=== PATIENT | male | born 1940 | race Caucasian/White ===

== ENCOUNTER → 2018-06-13 09:03 | Outpatient (CLI) | payer MEDICARE, OTHER, SELFPAY ==
[2018-06-13 09:45] LABS: Add Manual Diff / Slide Review NO; Basophils Absolute Auto 0 /uL (0-100); Basophils Percent Auto 0.7 % (0-2); Eosinophils Absolute Auto 200 /uL (0-450); Eosinophils Percent Auto 3.2 % (2-4); Hematocrit 40.9 % (41-53); Hemoglobin 14.1 g/dL (13.5-17.5); Lymphocytes Absolute Auto 1500 /uL (1100-4500); Lymphocytes Percent Auto 27.4 % (25-40); Mean Corpuscular HGB Conc 34.6 % (30-36); Mean Corpuscular Hemoglobin 32.4 PG (26-34); Mean Corpuscular Volume 93.5 fL (80-100); Monocytes Absolute Auto 500 /uL (0-900); Monocytes Percent Auto 8.6 % (3-14); Neutrophils Absolute Auto 3200 /uL (1500-7000); Neutrophils Percent Auto 60.1 % (50-75); Platelet Count 171 X10^3/uL (150-400); Red Blood Cell Count 4.37 X10^6/uL (4.5-5.9); Red Cell Distribution Width 12.6 % (11.6-14.8); White Blood Cell Count 5.3 X10^3/uL (4.5-11.0)
[2018-06-13 09:58] LABS: Alanine Aminotransferase 32 IU/L (21-72); Albumin 4.2 g/dL (3.5-5.0); Albumin Globulin Ratio 1.4 (1.0-2.8); Alkaline Phosphatase 64 U/L (38-126); Aspartate Aminotransferase 23 IU/L (17-59); BUN Creatinine Ratio 35.6 (6-22); Bilirubin Total 0.9 mg/dL (0.2-1.3); Blood Urea Nitrogen 32 mg/dL (9-20); Calcium 9.6 mg/dL (8.4-10.2); Carbon Dioxide 29 mmol/L (22-32); Chloride 100 mmol/L (98-107); Cholesterol 181 mg/dL (140-199); Estimated Glomerular Filt Rate > 60.0 mL/min (>60); Glucose 121 mg/dL (80-110); HDL Cholesterol 44 mg/dL (40-60); HEMOLYSIS < 15 (0-50); LDL Cholesterol Calculated 116 mg/dL (<100); Potassium 4.1 mmol/L (3.4-5.1); Sodium 138 mmol/L (137-145); Total Protein 7.2 g/dL (6.3-8.2); Triglycerides 105 mg/dL (35-150)
== END ==
PROVIDERS: PCP Internal Medicine; Visit Provider Internal Medicine
DX: E78.00 Pure hypercholesterolemia, unspecified (principal); I10 Essential (primary) hypertension
CPT/HCPCS: 36415; 80053; 80061; 85025

== ENCOUNTER → 2018-10-02 08:36 | Outpatient (CLI) | payer MEDICARE, OTHER, SELFPAY ==
[2018-10-02 10:01] LABS: Cholesterol 156 mg/dL (140-199); HDL Cholesterol 45 mg/dL (40-60); LDL Cholesterol Calculated 88 mg/dL (<100); Triglycerides 113 mg/dL (35-150)
== END ==
PROVIDERS: PCP Internal Medicine; Visit Provider Internal Medicine
DX: I10 Essential (primary) hypertension (principal)
CPT/HCPCS: 36415; 80061

== ENCOUNTER → 2019-02-18 14:23 | Outpatient (CLI) | payer MEDICARE, OTHER, SELFPAY ==
--- NOTE | 2019-02-18 | DI.RAD.S_ITS ---
PROCEDURE: XR CHEST 2V INDICATIONS: CHEST XR ACUTE BRONCHITITS TECHNIQUE: 2 views of the chest were acquired. COMPARISON: [facility], CHEST 1 VIEW, 11/10/2015, 6:58. [facility], CHEST 1 VIEW, 07/20/2011, 2:21. FINDINGS: Surgical changes and devices: None. Lungs and pleura: Lungs are clear. No pleural effusions or pneumothorax. Mediastinum: Mediastinal contours are normal. Heart size is normal. Bones and chest wall: No suspicious bony abnormalities. Soft tissues appear unremarkable. IMPRESSION: Normal for age, source of current acute bronchitis symptoms is not seen. Dictated by: Chapito Paris M.D. on 02/18/2019 at 15:54 Approved by: Chapito Paris M.D. on 02/18/2019 at 15:54
== END ==
PROVIDERS: PCP Internal Medicine; Visit Provider Student in an Organized Health Care Education/Training Program
DX: J20.9 Acute bronchitis, unspecified (principal)
CPT/HCPCS: 71046

== ENCOUNTER → 2019-11-08 16:44 | Outpatient (CLI) | payer MEDICARE, OTHER, SELFPAY ==
[2019-11-08 17:21] LABS: Add Manual Diff / Slide Review NO; Basophils Absolute Auto 0 /uL (0-100); Basophils Percent Auto 0.4 % (0-2); Eosinophils Absolute Auto 200 /uL (0-450); Eosinophils Percent Auto 2.2 % (2-4); Hematocrit 39.3 % (41-53); Hemoglobin 13.5 g/dL (13.5-17.5); Lymphocytes Absolute Auto 2100 /uL (1100-4500); Lymphocytes Percent Auto 30.6 % (25-40); Mean Corpuscular HGB Conc 34.3 % (30-36); Mean Corpuscular Hemoglobin 32.2 PG (26-34); Mean Corpuscular Volume 93.8 fL (80-100); Monocytes Absolute Auto 500 /uL (0-900); Monocytes Percent Auto 7.5 % (3-14); Neutrophils Absolute Auto 4100 /uL (1500-7000); Neutrophils Percent Auto 59.3 % (50-75); Platelet Count 176 X10^3/uL (150-400); Red Blood Cell Count 4.19 X10^6/uL (4.5-5.9); Red Cell Distribution Width 12.7 % (11.6-14.8); White Blood Cell Count 6.9 X10^3/uL (4.5-11.0)
[2019-11-08 18:21] LABS: Alanine Aminotransferase 43 IU/L (<50); Albumin 4.1 g/dL (3.5-5.0); Albumin Globulin Ratio 1.4 (1.0-2.8); Alkaline Phosphatase 78 U/L (38-126); Aspartate Aminotransferase 38 IU/L (17-59); Bilirubin Total 0.7 mg/dL (0.2-1.3); Blood Urea Nitrogen 24 mg/dL (9-20); Calcium 9.2 mg/dL (8.4-10.2); Carbon Dioxide 28 mmol/L (22-32); Chloride 103 mmol/L (98-107); Estimated Glomerular Filt Rate > 60.0 mL/min (>60); Glucose 107 mg/dL (80-110); HEMOLYSIS < 15 (0-50); Potassium 3.9 mmol/L (3.4-5.1); Sodium 139 mmol/L (137-145); Total Protein 7.1 g/dL (6.3-8.2)
== END ==
PROVIDERS: PCP Internal Medicine; Referring Provider Internal Medicine; Visit Provider Internal Medicine
DX: E78.00 Pure hypercholesterolemia, unspecified (principal); I10 Essential (primary) hypertension; E66.9 Obesity, unspecified
CPT/HCPCS: 36415; 80053; 85025

== ENCOUNTER → 2020-05-28 08:25 | Outpatient (CLI) | payer MEDICARE, OTHER, SELFPAY ==
[2020-05-28 09:47] LABS: Add Manual Diff / Slide Review NO; Basophils Absolute Auto 0 /uL (0-100); Basophils Percent Auto 0.5 % (0-2); Eosinophils Absolute Auto 100 /uL (0-450); Eosinophils Percent Auto 2.5 % (2-4); Hematocrit 39.4 % (41-53); Hemoglobin 13.5 g/dL (13.5-17.5); Lymphocytes Absolute Auto 1400 /uL (1100-4500); Lymphocytes Percent Auto 27.6 % (25-40); Mean Corpuscular HGB Conc 34.4 % (30-36); Mean Corpuscular Hemoglobin 32.4 PG (26-34); Mean Corpuscular Volume 94.3 fL (80-100); Monocytes Absolute Auto 500 /uL (0-900); Neutrophils Absolute Auto 3200 /uL (1500-7000); Neutrophils Percent Auto 60.4 % (50-75); Platelet Count 167 X10^3/uL (150-400); Red Blood Cell Count 4.17 X10^6/uL (4.5-5.9); Red Cell Distribution Width 12.6 % (11.6-14.8); White Blood Cell Count 5.2 X10^3/uL (4.5-11.0)
[2020-05-28 09:58] LABS: Alanine Aminotransferase 38 IU/L (<50); Albumin 4.1 g/dL (3.5-5.0); Albumin Globulin Ratio 1.5 (1.0-2.8); Alkaline Phosphatase 76 U/L (38-126); Aspartate Aminotransferase 40 IU/L (17-59); BUN Creatinine Ratio 27.3 (6-22); Bilirubin Total 0.8 mg/dL (0.2-1.3); Blood Urea Nitrogen 18 mg/dL (9-20); Calcium 9.5 mg/dL (8.4-10.2); Carbon Dioxide 27 mmol/L (22-32); Chloride 104 mmol/L (98-107); Estimated Glomerular Filt Rate > 60.0 mL/min (>60); Globulin 2.7 g/dL (1.7-4.1); Glucose 111 mg/dL (80-110); HEMOLYSIS < 15 (0-50); Lipase 42 U/L (23-300); Potassium 3.8 mmol/L (3.4-5.1); Sodium 137 mmol/L (137-145); Total Protein 6.8 g/dL (6.3-8.2)
[2020-05-28 10:18] LABS: Erythrocyte Sedimentation Rate 14 MM/HR (0-15)
[2020-05-28 10:25] LABS: Prostate Specific Antigen 0.268 ng/mL (0.10-4.00)
== END ==
PROVIDERS: PCP Internal Medicine; Referring Provider Internal Medicine; Visit Provider Internal Medicine
DX: R10.32 Left lower quadrant pain (principal); Z12.5 Encounter for screening for malignant neoplasm of prostate
CPT/HCPCS: 36415; 80053; 83690; 84153; 85025; 85651; G0103

== ENCOUNTER → 2021-10-12 09:19 | Outpatient (CLI) | payer MEDICARE, OTHER, SELFPAY ==
[2021-10-12 12:19] LABS: Alanine Aminotransferase 23 IU/L (<50); Albumin 4.1 g/dL (3.5-5.0); Albumin Globulin Ratio 1.4 (1.0-2.8); Alkaline Phosphatase 71 U/L (38-126); Aspartate Aminotransferase 24 IU/L (17-59); Blood Urea Nitrogen 18 mg/dL (9-20); Calcium 9.2 mg/dL (8.4-10.2); Carbon Dioxide 30 mmol/L (22-32); Chloride 103 mmol/L (98-107); Cholesterol 162 mg/dL (140-199); Estimated Glomerular Filt Rate > 60 mL/min (>60); Globulin 2.9 g/dL (1.7-4.1); Glucose 102 mg/dL (80-110); HDL Cholesterol 45 mg/dL (40-60); HEMOLYSIS < 15 (0-50); LDL Cholesterol Calculated 95 mg/dL (<100); Potassium 4.2 mmol/L (3.4-5.1); Sodium 137 mmol/L (137-145); Triglycerides 111 mg/dL (35-150)
== END ==
PROVIDERS: PCP Internal Medicine; Referring Provider Internal Medicine; Visit Provider Internal Medicine
DX: I10 Essential (primary) hypertension (principal); E78.2 Mixed hyperlipidemia; N13.8 Other obstructive and reflux uropathy; N40.1 Benign prostatic hyperplasia with lower urinary tract symptoms
CPT/HCPCS: 36415; 80053; 80061

== ENCOUNTER → 2022-05-04 10:31 | Outpatient (CLI) | payer MEDICARE, OTHER, SELFPAY ==
[2022-05-04 11:17] LABS: Alanine Aminotransferase 37 IU/L (<50); Albumin 4.1 g/dL (3.5-5.0); Albumin Globulin Ratio 1.3 (1.0-2.8); Alkaline Phosphatase 70 U/L (38-126); Aspartate Aminotransferase 31 IU/L (17-59); BUN Creatinine Ratio 20.7 (6-22); Bilirubin Total 0.9 mg/dL (0.2-1.3); Blood Urea Nitrogen 17 mg/dL (9-20); Carbon Dioxide 33 mmol/L (22-32); Chloride 101 mmol/L (98-107); Cholesterol 162 mg/dL (140-199); Estimated Glomerular Filt Rate > 60 mL/min (>60); Globulin 3.1 g/dL (1.7-4.1); Glucose 95 mg/dL (80-110); HDL Cholesterol 47 mg/dL (40-60); HEMOLYSIS < 15 (0-50); LDL Cholesterol Calculated 99 mg/dL (<100); Potassium 4.2 mmol/L (3.4-5.1); Sodium 137 mmol/L (137-145); Total Protein 7.2 g/dL (6.3-8.2); Triglycerides 79 mg/dL (35-150)
[2022-05-11 09:54] LABS: Percent Free Testosterone 1.66 % (1.50-4.20); Testosterone Free 4.97 ng/dL (5.00-21.00); Testosterone Total 299.6 ng/dL (264.0-916.0)
== END ==
PROVIDERS: PCP Internal Medicine; Referring Provider Internal Medicine; Visit Provider Internal Medicine
DX: E78.2 Mixed hyperlipidemia (principal); I10 Essential (primary) hypertension; R37 Sexual dysfunction, unspecified; R53.83 Other fatigue
CPT/HCPCS: 36415; 80053; 80061; 84402; 84403

== ENCOUNTER → 2022-06-29 12:40 | Outpatient (CLI) | payer MEDICARE, OTHER, SELFPAY | PROVIDERS: PCP Internal Medicine; Visit Provider Nurse Practitioner Family | DX: S51.019A Laceration without foreign body of unspecified elbow, initial encounter (principal) | CPT/HCPCS: 87070; 87075; 87205 ==

== ENCOUNTER → 2022-08-12 12:59 | Outpatient (CLI) | payer MEDICARE, OTHER, SELFPAY ==
--- NOTE | 2022-08-12 | DI.CT.S_ITS ---
PROCEDURE: CT LE RT WO CON INDICATIONS: Presence of right artificial ankle joint TECHNIQUE: Noncontrast 1-1.5 mm axial sections acquired from above the tibiotalar joint to the bottom of the calcaneus, with coronal and sagittal reformats. COMPARISON: [facility] [place], CR, XR ANKLE 3 VIEWS WEIGHT BEARING RIGHT, 08/08/2022, 10:23. FINDINGS: Image quality: Images are mildly degraded by mortise joint arthroplasty with expected metal streak artifact. Bones: Postsurgical changes are seen from a tibiotalar joint arthroplasty. Hardware components are in expected positions without signs of loosening. Mild heterotopic calcification is seen along the posterior joint line. No acute osseous fracture is identified. Mild degenerative changes at the posterior subtalar facet. No significant degenerative changes in the midfoot. Soft tissues: Mild soft tissue edema is seen surrounding the ankle. No significant joint effusion is seen. No definite tendon tear, although the tendons, ligaments, and articular cartilages are not well evaluated with standard CT. IMPRESSION: Postsurgical changes from tibiotalar arthroplasty. No acute hardware complication is seen. No acute osseous abnormality. Approved by: Alfred Gayle M.D. on 08/12/2022 at 15:26
== END ==
PROVIDERS: PCP Internal Medicine; Referring Provider Orthopaedic Surgery; Visit Provider Orthopaedic Surgery
DX: Z96.661 Presence of right artificial ankle joint (principal); M25.571 Pain in right ankle and joints of right foot
CPT/HCPCS: 73700

== ENCOUNTER → 2023-04-27 14:40 | Outpatient (CLI) | payer MEDICARE, OTHER, SELFPAY ==
[2023-04-27 17:29] LABS: Alanine Aminotransferase 26 IU/L (<50); Albumin 4.1 g/dL (3.5-5.0); Albumin Globulin Ratio 1.4 (1.0-2.8); Alkaline Phosphatase 74 U/L (38-126); Aspartate Aminotransferase 27 IU/L (17-59); BUN Creatinine Ratio 27.4 (6-22); Bilirubin Total 0.8 mg/dL (0.2-1.3); Blood Urea Nitrogen 20 mg/dL (9-20); Calcium 9.5 mg/dL (8.4-10.2); Carbon Dioxide 32 mmol/L (22-32); Chloride 104 mmol/L (98-107); Estimated Glomerular Filt Rate > 60 mL/min (>60); Globulin 2.9 g/dL (1.7-4.1); Glucose 92 mg/dL (80-110); HEMOLYSIS < 15 (0-50); Potassium 4.1 mmol/L (3.4-5.1); Sodium 139 mmol/L (137-145)
== END ==
PROVIDERS: PCP Internal Medicine; Referring Provider Internal Medicine; Visit Provider Internal Medicine
DX: I10 Essential (primary) hypertension (principal); E78.2 Mixed hyperlipidemia
CPT/HCPCS: 36415; 80053

== ENCOUNTER → 2023-10-25 17:14 | Outpatient (CLI) | payer MEDICARE, OTHER, SELFPAY ==
--- NOTE | 2023-10-25 17:16 | DI.RAD.S_ITS ---
PROCEDURE: XR ANKLE RT MIN 3V INDICATIONS: right ankle pain TECHNIQUE: 3 views of the ankle were acquired. COMPARISON: [facility] [place], CR, XR ANKLE 3 VIEWS WEIGHT BEARING RIGHT, 08/08/2022, 10:23. FINDINGS: Bones: Tibiotalar arthroplasty changes are present. There is been interval development of a dorsal bone spur arising from the posterior talus along the posterior margin of the prosthesis. There is lucency along the anterior and posterior ends of the talar prosthesis with callus now covering the posterior margin. Degree of lucency surrounding the tibia and talar components is fairly stable. There is a chronic distal fibular deformity. No acute fractures. Mild arthritis of the posterior subtalar joint. Soft tissues: Small tibiotalar joint effusion. Dystrophic calcification at the Achilles insertion. IMPRESSION: Osseous remodeling surrounding a slightly loose appearing tibiotalar prosthesis. No progressive interval loosening. Dictated by: Edith Lewis M.D. on 10/26/2023 at 16:22 Approved by: Edith Lewis M.D. on 10/26/2023 at 16:30
== END ==
LOC: RAD 17:16
PROVIDERS: PCP Family Medicine; Referring Provider Family Medicine; Visit Provider Family Medicine
DX: M19.071 Primary osteoarthritis, right ankle and foot (principal); M25.471 Effusion, right ankle; M25.571 Pain in right ankle and joints of right foot; Z96.661 Presence of right artificial ankle joint
CPT/HCPCS: 73610

== ENCOUNTER → 2024-08-06 07:47 | Outpatient (CLI) | payer MEDICARE, OTHER, SELFPAY ==
--- NOTE | 2024-08-06 07:48 | DI.NM.S_ITS ---
PROCEDURE: NM OSMIN PERF SPECT R&S PHARM Rest and pharmacological stress myocardial perfusion SPECT with gated imaging and ejection fraction RADIOPHARMACEUTICAL: 12.9 mCi Tc-99m tetrafosmin IV at rest and 26.1 mCi Tc-99m tetrafosmin IV at peak effect of pharmacological stress. A [id number] was performed. INDICATIONS: Chest pain TECHNIQUE: Radiopharmaceutical was injected at peak stress test, and also at rest. SPECT images were obtained. SPECT myocardial perfusion images were displayed in short axis, horizontal long axis, and vertical long axis views. Gated images were reviewed using [employer] software. COMPARISON: None. CARDIAC STRESS: A pharmacologic stress test was performed under the supervision of an attending staff, using an infusion of regadenoson 0.4 mg IV. Hemodynamic data: There is normal blood pressure and heart rate response to pharmacologic stress. Symptoms: The patient denied anginal chest pain. EKG: No diagnostic changes of ischemia; no ectopy. FINDINGS: Raw data: There is good myocardial uptake of radiotracer. No significant motion artifacts. Nmkt-si-oipox ratio is 0.38 (normal is less than 0.38 for tetrafosmin tracer). Left ventricle function: Gated images demonstrate normal left ventricular wall thickening. No segmental wall motion abnormalities. No transient ischemic dilation; TID is 1.09 (normal less than 1.3). Left ventricle resting end diastolic volume is 84 mL. Left ventricle stress ejection fraction is 72%; normal range is above 45%. Myocardial perfusion: There is normal distribution of activity in the right and left ventricular myocardium. No fixed or reversible perfusion defects. IMPRESSION: Low risk study. No evidence of pharmacologic induced ischemia or scar. Normal LV size and function. Dictated by: Nia Gardner D.O. on 08/06/2024 at 16:54 Approved by: Nia Gardner D.O. on 08/06/2024 at 16:56
== END ==
LOC: NUCM 07:47
PROVIDERS: PCP Family Medicine; Referring Provider Family Medicine; Visit Provider Family Medicine
DX: R07.89 Other chest pain (principal)
CPT/HCPCS: 78452; 93017; A9502; J2785

== ENCOUNTER → 2024-08-08 07:55 | Outpatient (CLI) | payer MEDICARE, OTHER, SELFPAY ==
[2024-08-08 08:35] LABS: Add Manual Diff / Slide Review NO; Basophils Absolute Auto 0 /uL (0-100); Basophils Percent Auto 0.3 % (0-2); Eosinophils Absolute Auto 200 /uL (0-450); Eosinophils Percent Auto 2.9 % (2-4); Hematocrit 38.4 % (41-53); Hemoglobin 13.6 g/dL (13.5-17.5); Lymphocytes Absolute Auto 1700 /uL (1100-4500); Lymphocytes Percent Auto 26.9 % (25-40); Mean Corpuscular HGB Conc 35.3 % (30-36); Mean Corpuscular Hemoglobin 33.5 PG (26-34); Mean Corpuscular Volume 94.7 fL (80-100); Monocytes Absolute Auto 500 /uL (0-900); Monocytes Percent Auto 7.9 % (3-14); Neutrophils Absolute Auto 3800 /uL (1500-7000); Platelet Count 166 X10^3/uL (150-400); Red Blood Cell Count 4.05 X10^6/uL (4.5-5.9); Red Cell Distribution Width 12.9 % (11.6-14.8); White Blood Cell Count 6.2 X10^3/uL (4.5-11.0)
[2024-08-08 08:58] LABS: Alanine Aminotransferase 23 IU/L (<50); Albumin 4.1 g/dL (3.5-5.0); Albumin Globulin Ratio 1.6 (1.0-2.8); Alkaline Phosphatase 71 U/L (38-126); Aspartate Aminotransferase 23 IU/L (17-59); BUN Creatinine Ratio 26.4 (6-22); Bilirubin Total 0.6 mg/dL (0.2-1.3); Blood Urea Nitrogen 23 mg/dL (9-20); Calcium 9.3 mg/dL (8.4-10.2); Carbon Dioxide 29 mmol/L (22-32); Chloride 106 mmol/L (98-107); Cholesterol 148 mg/dL (140-199); Estimated Glomerular Filt Rate > 60 mL/min (>60); Globulin 2.5 g/dL (1.7-4.1); Glucose 105 mg/dL (70-99); HDL Cholesterol 45 mg/dL (40-60); HEMOLYSIS < 15 (0-50); LDL Cholesterol Calculated 82 mg/dL (<100); Potassium 4.2 mmol/L (3.4-5.1); Sodium 140 mmol/L (137-145); Total Protein 6.6 g/dL (6.3-8.2); Triglycerides 105 mg/dL (35-150)
[2024-08-08 09:23] LABS: TSH w/ Reflex to FT4 2.35 uIU/mL (0.47-4.68)
== END ==
PROVIDERS: PCP Family Medicine; Referring Provider Family Medicine; Visit Provider Family Medicine
DX: R07.89 Other chest pain (principal)
CPT/HCPCS: 36415; 80053; 80061; 84443; 85025

== ENCOUNTER 2025-01-08 12:59 | Emergency (ER) | payer MEDICARE, OTHER, SELFPAY ==
[2025-01-08] VITALS (14 sets, daily range): BP systolic 124–175; BP diastolic 63–84; PULSE 57–70; RESP 12–24; TEMP 36.2; O2SAT 93–98; BMI 31.9
--- NOTE | 2025-01-08 13:15 | EKG_ITS ---
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
--- NOTE | 2025-01-08 13:15 | DI.RAD.S_ITS ---
PROCEDURE: XR CHEST 1V INDICATIONS: Chest Pain TECHNIQUE: One view of the chest was acquired. COMPARISON: [facility], , CHEST 1 VIEW, 11/10/2015, 6:58. FINDINGS: Surgical changes and devices: None. Lungs and pleura: Lungs are clear. No pleural effusions or pneumothorax. Mediastinum: Mediastinal contours appear normal. Heart size is enlarged. Bones and chest wall: No suspicious bony lesions. Overlying soft tissues appear unremarkable. IMPRESSION: No acute cardiopulmonary pathology. Dictated by: Derek Young M.D. on 01/08/2025 at 13:55 Approved by: Derek Young M.D. on 01/08/2025 at 13:55
[2025-01-08 13:31] LABS: Add Manual Diff / Slide Review NO; Hematocrit 41.2 % (41-53); Hemoglobin 14.2 g/dL (13.5-17.5); Lymphocytes Absolute Auto 2100 /uL (1100-4500); Mean Corpuscular HGB Conc 34.4 % (30-36); Mean Corpuscular Hemoglobin 32.1 PG (26-34); Mean Corpuscular Volume 93.2 fL (80-100); Platelet Count 165 X10^3/uL (150-400)
[2025-01-08 13:38] LABS: INR 0.9 (0.9-1.3); Prothrombin Time 10.5 SECONDS (9.4-12.5)
[2025-01-08 13:40] LABS: PTT Partial Thromboplastin Tim 32 SECONDS (25.1-36.5)
[2025-01-08 13:42] LABS: Alanine Aminotransferase 23 IU/L (<50); Albumin 4.6 g/dL (3.5-5.0); Albumin Globulin Ratio 1.5 (1.0-2.8); Alkaline Phosphatase 68 U/L (38-126); Blood Urea Nitrogen 23 mg/dL (9-20); Calcium 9.5 mg/dL (8.4-10.2); Carbon Dioxide 29 mmol/L (22-32); Chloride 103 mmol/L (98-107); Creatine Kinase 47 U/L (55-170); Estimated Glomerular Filt Rate > 60 mL/min (>60); Globulin 3.1 g/dL (1.7-4.1); Glucose 88 mg/dL (70-99); HEMOLYSIS < 15 (0-50); Lipase 54 U/L (23-300); Magnesium 1.8 mg/dL (1.6-2.3); Potassium 4.0 mmol/L (3.4-5.1); Sodium 140 mmol/L (137-145); Total Protein 7.7 g/dL (6.3-8.2)
[2025-01-08 13:53] LABS: NT-proBNP (BNP-Adult 18+) 47 pg/mL (<450); Troponin I < 0.012 ng/mL (0.01-0.034)
[2025-01-08] MEDS: ASPIRIN 81 MG CHEW TAB 324 MG PO (14:23)
--- NOTE | 2025-01-08 15:43 | ED_ITS ---
HPI - Chest Pain General Chief Complaint: Chest Pain Stated Complaint: chest pain, radiating to arms x1 hour Time Seen by Provider: 01/08/25 15:29 Source: patient, RN notes reviewed and old records reviewed Limitations: no limitations History of Present Illness HPI narrative: 84-year-old male history of hypertension, dyslipidemia, GERD, BPH with LUTS presents with complaint of chest pain that started while sitting at a desk earlier today. Patient states it started while he was sitting at a desk has a little bit on the right side radiated to his jaw and down his arm then migrated little bit to the center and slightly to the left with some radiation down the left arm. He describes it as 7 and 8/10 at its maximum resolved about an hour prior to my evaluation. He has not had similar symptoms in the past. He denies any shortness of breath. No diaphoresis. No nausea or vomiting. No swelling of extremities. He has not had any cold, cough or congestion symptoms. No fevers or chills. Patient has not had any known cardiac history, he has never had a cardiac stent or heart catheterization. He notes prior ankle fracture with repair remotely. No tobacco, rare alcohol, no recreational drugs. Primary care is Zahra Palomino. Patient did have recent travel flew to [facility] where he then was on a cruise and then returned. Last slight was about a week ago. Home medications include alfuzosin, atorvastatin, finasteride, HCTZ, lisinopril/HCTZ, omeprazole, sertraline, trazodone. Related Data Home Medications ?Medication ?Instructions ?Recorded ?Confirmed ascorbate calcium (vitamin C) 500 500 mg PO DAILY 06/0410/02/24 mg tablet calcium polycarbophil 625 mg 625 mg PO DAILY 04/16/21 10/02/24 tablet (Fiber-Tabs) cholecalciferol (vitamin D3) 125 125 mcg PO DAILY 06/0410/02/24 mcg (5,000 unit) capsule Previous Rx's ?Medication ?Instructions ?Recorded alfuzosin 10 mg tablet,extended 10 mg PO DAILY #90 tab s 02/16/22 release 24 hr finasteride 5 mg tablet 5 mg PO DAILY #90 tabs 02/16 Disabled Parking #1 ea 04/27/23 omeprazole 20 mg tablet,delayed 20 mg PO DAILY #90 tab s 02/26/24 release sertraline 50 mg tablet 50 mg PO DAILY #90 tabs 03/09 atorvastatin 40 mg tablet 40 mg PO DAILY #90 tabs 07/15 07/07 hydrochlorothiazide 12.5 mg tablet 12.5 mg PO DAILY #9 0 tabs 08/07/24 losartan 25 mg tablet 25 mg PO DAILY #90 tabs 11/07 trazodone 50 mg tablet 100 mg (2 x 50 mg) PO BEDTIM E PRN 10/28/24 sleep #180 tabs nitroglycerin 0.4 mg sublingual 0.4 mg sublingual Q5-1 5M PRN chest 01/08/25 tablet pain #10 tabs Allergies Allergy/AdvReac Type Severity Reaction Status Date / Time No Known Drug Allergies Allergy Verified 10/02/24 09:17 Review of Systems Review of Systems ROS Unobtainable: All systems reviewed & are unremarkable except as noted in HPI and below Patient History Medical History Insomnia Pectus excavatum PTSD (post-traumatic stress disorder) Mixed hyperlipidemia GERD without esophagitis Essential hypertension BPH w urinary obs/LUTS Hearing loss Eczema (~2013) Fractures (~1966) Ankle pain (~1966) Surgical History S/P tonsillectomy and adenoidectomy (~1944) S/P hernia repair (~2010) Anesthesia History of prostate surgery (~2001) History of ankle surgery (~1966) History of total ankle replacement (~2010) Family History Father Cancer Mother Cerebral hemorrhage Social History alcohol intake: current (1 drink per month or less ) substance use type: does not use Exam Narrative Exam Narrative: GENERAL: Alert and oriented x three, well-appearing male mild distress. HEENT: Head normocephalic, atraumatic, EOMI, pupils reactive, face symmetric, moist mucous membranes NECK: Supple, full range of motion CARDIOVASCULAR: Regular rate and rhythm without murmurs, rubs or gallops. No reproducible chest pain with palpation. No edema bilateral lower extremities. RESPIRATORY: Breath sounds equal bilaterally, no wheezes rales or rhonchi. No tachypnea or accessory muscle use. ABDOMEN: Soft, nontender. Normoactive bowel sounds all 4 quadrants. No guarding or rebound, rigidity, no mass : No CVA tenderness EXTREMITIES: Normal range of motion, no clubbing or edema. Neurovascularly intact NEUROLOGICAL: Cranial nerves II through XII grossly intact. Moving all extremities SKIN: Warm, dry, no petechiae, no rashes or lesions. Initial Vital Signs Initial Vital Signs: Vital Signs Temperature 97.1 F L 01/08/25 13:12 Pulse Rate 70 01/08/25 13:12 Respiratory Rate 16 01/08/25 13:12 Blood Pressure 164/80 H 01/08/25 13:12 Pulse Oximetry 96 01/08/25 13:12 Oxygen Delivery Method Room Air 01/08/25 13:12 Scores HEART Score Heart Score history: Moderately Suspicious Heart Score EKG: Normal Heart Score Age: > or = 65 years old Heart Score risk factors: 1-2 risk factors Heart Score troponin: < or = to normal limit Heart Score Total: 4 Course Orders Ordered: ED Orders 01/08/25 13:15 XR chest 1V Stat EKG-12 Lead Stat 01/08/25 13:21 Complete Blood Count AUTO DIFF Stat Comprehensive Metabolic Panel Stat Lipase Stat Magnesium Stat NT-proBNP (BNP-Adult 18+) Stat PTT Partial Thromboplastin Raymon Stat Prothrombin Time INR Stat Troponin & CK Cardiac Panel Stat 01/08/25 15:44 EKG-12 Lead Stat 01/08/25 15:50 Trop I [Troponin I] Stat 01/08/25 16:04 CT angio chest PE protocol Stat Discontinued Medications Aspirin (Aspirin 81 Mg Chew Tab) 324 mg PO NOW ONE Stop: 01/08/25 13:16 Last Admin: 01/08/25 14:23 Dose: 324 mg Documented By: PAULINE Vital Signs Vital signs: Vital Signs - 8 hr 01/08/25 13:12 01/08/25 13:45 01/08/25 13:47 Temperature 97.1 F L Pulse Rate 70 67 Respiratory Rate 16 Blood Pressure 164/80 H 175/81 H Pulse Oximetry 96 97 Oxygen Delivery Method Room Air 01/08/25 13:47 01/08/25 14:00 01/08/25 14:00 Temperature Pulse Rate 62 57 L Respiratory Rate 14 13 Blood Pressure 124/69 Pulse Oximetry 97 98 Oxygen Delivery Method 01/08/25 14:30 01/08/25 14:30 01/08/25 15:00 Temperature Pulse Rate 60 Respiratory Rate 16 Blood Pressure 154/75 H 150/71 H Pulse Oximetry 94 Oxygen Delivery Method 01/08/25 15:00 01/08/25 15:30 01/08/25 15:30 Temperature Pulse Rate 60 57 L Respiratory Rate 18 12 Blood Pressure 140/67 Pulse Oximetry 93 97 Oxygen Delivery Method 01/08/25 16:00 01/08/25 16:00 01/08/25 16:30 Temperature Pulse Rate 66 61 Respiratory Rate 20 16 Blood Pressure 157/74 H Pulse Oximetry 98 97 Oxygen Delivery Method 01/08/25 17:00 01/08/25 17:18 01/08/25 17:18 Temperature Pulse Rate 59 L 59 L Respiratory Rate 21 15 Blood Pressure 148/70 H Pulse Oximetry 97 98 Oxygen Delivery Method 01/08/25 17:30 01/08/25 17:31 01/08/25 17:31 Temperature Pulse Rate 57 L 58 L Respiratory Rate 17 19 Blood Pressure 140/63 Pulse Oximetry 96 96 Oxygen Delivery Method 01/08/25 18:00 01/08/25 18:00 Temperature Pulse Rate 61 Respiratory Rate 24 Blood Pressure 149/84 H Pulse Oximetry 97 Oxygen Delivery Method MDM - Chest Pain Lab Data 01/08/25 13:21 01/08/25 13:21 Labs: Lab Results 01/08/25 01/08/25 Range/Units 13:21 15:50 WBC 7.1 (4.5-11.0) X10^3/uL RBC 4.42 L (4.5-5.9) X10^6/uL Hgb 14.2 (13.5-17.5) g/dL Hct 41.2 (41-53) % MCV 93.2 (80-100) fL MCH 32.1 (26-34) PG MCHC 34.4 (30-36) % RDW 12.8 (11.6-14.8) % Plt Count 165 (150-400) X10^3/uL Neut % (Auto) 58.8 (50-75) % Lymph % (Auto) 29.2 (25-40) % [place] % (Auto) 8.4 (3-14) % Eos % (Auto) 3.2 (2-4) % Baso % (Auto) 0.4 (0-2) % Neut # (Auto) 4200 (2933-7323) /uL Lymph # (Auto) 2100 (4113-5586) /uL [place] # (Auto) 600 (0-900) /uL Eos # (Auto) 200 (0-450) /uL Baso # (Auto) 0 (0-100) /uL PT 10.5 (9.4-12.5) SECONDS INR 0.9 (0.9-1.3) APTT 32 (25.1-36.5) SECONDS Sodium 140 (137-145) mmol/L Potassium 4.0 (3.4-5.1) mmol/L Chloride 103 (98-107) mmol/L Carbon Dioxide 29 (22-32) mmol/L BUN 23 H (9-20) mg/dL Creatinine 0.80 (0.66-1.25) mg/dL Estimated GFR > 60 (>60) mL/min BUN/Creatinine Ratio 28.8 H (6-22) Glucose 88 (70-99) mg/dL Calcium 9.5 (8.4-10.2) mg/dL Magnesium 1.8 (1.6-2.3) mg/dL Total Bilirubin 0.7 (0.2-1.3) mg/dL AST 27 (17-59) IU/L ALT 23 (<50) IU/L Alkaline Phosphatase 68 (38-126) U/L Total Creatine Kinase 47 L (55-170) U/L Troponin I < 0.012 < 0.012 (0.01-0.034) ng/mL NT-Pro-B Natriuret Pep 47 (<450) pg/mL Total Protein 7.7 (6.3-8.2) g/dL Albumin 4.6 (3.5-5.0) g/dL Globulin 3.1 (1.7-4.1) g/dL Albumin/Globulin Ratio 1.5 (1.0-2.8) Lipase 54 (23-300) U/L MDM Narrative Medical decision making narrative: Sinus rhythm rate of 64, ND 188 QRS 84 QTC of 394, no acute ST-elevation depression. EKG 2. Shows sinus bradycardia rate of 59 ND 188 QRS of 92 QTC of 390, no acute ST-elevation depression appreciated appears similar to prior EKG from earlier today. Patient has a prior from 06/25/2024 which appears similar to today's. White count of 7.1 hemoglobin of 14 platelets of 165, coags are negative, electrolytes are appropriate BUN 23 creatinine is 0.84 glucose is 88 LFTs are negative troponins less than 0.012 with a total CK of 47 and a BNP of 47. Lipase is 54. Repeat troponin repeat is less than 0.012 Chest x-ray shows no acute cardiopulmonary pathology. CT angio PE protocol no acute abnormality, no pulmonary embolism. Partially calcified pulmonary nodule in the right upper lobe benign. No acute abnormality. Aspirin 324 mg. Heart score of 4. Spoke with Dr. Packer, cardiology: If stress testing available on Monday we would recommend having this performed. There was none available over the or the weekend. If unable to obtain stress testing secondary to long holiday weekend would recommend aspirin, beta han and nitro for home. Spoke with Dr. Forman, hospitalist he is unsure of current scheduled. Spoke with DI nurse. notes inpatients stress test available Monday. Spoke with the patient, he defers observation for stress testing on Monday. He is agreeable to start an aspirin 81 mg daily, his heart rate runs in the 50s to 60s frequently so we will hold off on a beta-han but we will give a prescription for nitro sublingual. Patient is aware that he needs to follow up for further workup. And return if recurrent symptoms.. Discharge Plan Departure Patient Disposition: Home Clinical Impression: Chest pain Instructions: DI for Chest Pain Activity Restrictions/Additional Instructions: Your workup today did not show any acute changes but I do think he would benefit from following up from further evaluation. Take an aspirin 81 mg daily. Take nitro sublingual if you develop recurrent chest pain or pressure. If you need to take this medication you should return for re-evaluation. Prescription sent [facility]. Return if you have recurrent chest pain, shortness of breath, lightheadedness or passing out, new swelling in your extremities, diaphoresis or sweating, persistent vomiting or other new or concerning changes. Prescriptions: New nitroglycerin 0.4 mg tablet, sublingual 0.4 mg sublingual Q5-15M PRN (Reason: chest pain) Qty: 10 0RF Rx Instructions: do not exceed 3 doses per episode No Action finasteride 5 mg tablet 5 mg PO DAILY Qty: 90 3RF alfuzosin 10 mg tablet extended release 24 hr 10 mg PO DAILY Qty: 90 3RF Rx Instructions: administer after the same meal each day omeprazole 20 mg tablet,delayed release (DR/EC) 20 mg PO DAILY Qty: 90 3RF sertraline 50 mg tablet 50 mg PO DAILY Qty: 90 3RF atorvastatin 40 mg tablet 40 mg PO DAILY Qty: 90 0RF hydrochlorothiazide 12.5 mg tablet 12.5 mg PO DAILY Qty: 90 0RF losartan 25 mg tablet 25 mg PO DAILY Qty: 90 1RF trazodone 50 mg tablet 100 mg PO BEDTIME PRN (Reason: sleep) Qty: 180 1RF cholecalciferol (vitamin D3) 125 mcg (5,000 unit) capsule 125 mcg PO DAILY ascorbate calcium (vitamin C) 500 mg tablet 500 mg PO DAILY calcium polycarbophil [Fiber-Tabs] 625 mg tablet 625 mg PO DAILY (DME) Disabled Parking See Rx Instructions .ROUTE .MEDSUPPLY Qty: 1 0RF Rx Instructions: Patient qualifies for disabled parking as per the attached form. Referrals: Carlee Gaston DO [Primary Care Provider, Family Practice] Stand Alone Forms: Patient Portal/API
--- NOTE | 2025-01-08 15:44 | EKG_ITS ---
[facility] [address] [place] [address] Test Date: 2025-01-08 Pat Name: Real Mcmahon Department: 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
--- NOTE | 2025-01-08 16:04 | DI.CT.S_ITS ---
PROCEDURE: CT ANGIO CHEST PE PROTOCOL INDICATIONS: R chest pain, recent travel TECHNIQUE: After the administration of intravenous contrast, 2 mm thick sections acquired from the pulmonary apices to the posterior costophrenic angles. 3-dimensional maximum intensity projection (MIP) coronal and sagittal reformats were then acquired through the thorax. For radiation dose reduction, the following was used: automated exposure control, adjustment of mA and/or kV according to patient size. COMPARISON: None. FINDINGS: Quality: Diagnostic. Vasculature: Aorta: No aneurysm. Scattered calcified atherosclerotic plaques. Pulmonary arteries: No emboli. Lungs: Parenchyma: Partially calcified pulmonary nodule in the right upper lobe, benign. No consolidation or suspicious nodule. Airways: Patent. Pleura: No pneumothorax. No pleural effusion. Mediastinum: Thyroid: Unremarkable. Esophagus: Unremarkable. Heart: Normal size. Mild coronary calcification. Lymph nodes: No adenopathy. Other: Chest wall: Unremarkable. Upper abdomen: Cholecystectomy.. Bones: No aggressive osseous lesion. IMPRESSION: No acute abnormality. No pulmonary embolism. Dictated by: Osorio Johns M.D. on 01/08/2025 at 16:36 Approved by: Osorio Johns M.D. on 01/08/2025 at 16:42
[2025-01-08 16:19] LABS: Troponin I < 0.012 ng/mL (0.01-0.034)
== END 2025-01-08 18:27 | disposition home or self-care (01) ==
PROVIDERS: Emergency Provider Emergency Medicine; PCP Family Medicine
DX: R07.9 Chest pain, unspecified (principal); M79.602 Pain in left arm; R68.84 Jaw pain; R00.1 Bradycardia, unspecified; I10 Essential (primary) hypertension
CPT/HCPCS: 36415; 71045; 71275; 80053; 82550; 83690; 83735; 83880; 84484; 85025; 85610; 85730; 93005; 99284; Q9967

== ENCOUNTER → 2025-01-23 08:08 | Outpatient (CLI) | payer MEDICARE, OTHER, SELFPAY ==
--- NOTE | 2025-01-23 08:09 | DI.ECHO.S_ITS ---
[facility] : : [address] : : [place], : : [place] [address] : : Phone: [phone] Echocardiogram Report + + :Name: BIANCA GODWIN Study Date: 01/23/2025 Height: 66 in : :[facility] ReadingLocation: Weight: 197 lb : : Gender: Male BSA: 2.0 m2 : :: 1940 Age: 84 yrs BP: 153/80 mmHg: :Reason For Study: MIXED HYPERLIPIDEMIA : :Ordering Physician: REDDY, : :EVER Performed By: Seun Villalobos : :Referring: EVER BLAKELY : + + Interpretation Summary This is a technically difficult echo characterized by limited endocardial visualization. Next time recommend Definity echocontrast. Normal sinus rhythm. Normal LV size and mildly increased wall thickness; normal wall motion and LV systolic function. EF is 55-60%. Normal chamber sizes. No significant valve abnormalities. No prior echo available for comparison. Procedure: A two-dimensional transthoracic echocardiogram with color flow and Doppler was performed. The study quality was technically adequate. There is no prior echocardiogram noted for this patient. The patient was in normal sinus rhythm during the exam. Left Ventricle: The left ventricle is normal in size. Left ventricular wall thickness is mildly increased. There is no ventricular septal defect visualized. The ejection fraction is estimated to be 55-60%. There are no focal wall motion abnormalities. Diastolic parameters suggest a relaxation abnormality of the left ventricle, consistent with probable normal filling pressures. Right Ventricle: The right ventricle is normal in size and function. Atria: The left atrial size is normal. Right atrial size is normal. There is no Doppler evidence for an interatrial shunt. Mitral Valve: The mitral valve leaflets are mildly calcified. There is mild mitral annular calcification. There is trace mitral regurgitation. Aortic Valve: The aortic valve is trileaflet. The aortic valve is slightly calcified. The aortic valve opens well. There is mild aortic regurgitation. Tricuspid Valve: The tricuspid valve leaflets are thin and pliable. There is a trace or physiologic amount of tricuspid regurgitation. Pulmonic Valve: The pulmonic valve is not well seen, but is grossly normal. There is trace pulmonic regurgitation. Great Vessels: The aortic root is normal size. The ascending aorta is mildly enlarged. The pulmonary artery is normal size. The IVC is dilated (diameter is greater than 2.1 cm) yet it collapses greater than 50% with a sniff. This suggests a right atrial pressure of 8 mm Hg. Pericardium/ Pleura There is no pericardial effusion. There is no pleural effusion. MMode/2D Measurements & Calculations LVIDd: 4.6 cm AoV Openin.5 cm LVIDs: 3.2 cm LVOT diam: 3.3 cm IVSd: 1.3 cm Ao root diam: 2.2 cm LVPWd: 1.3 cm LV real. diameter/BSA (cm/m^2): 2.3 LV sys. diameter/BSA (cm/m^2): 1.6 FS: 30.1 % EPSS: 0.65 cm LA A2 area: 17.2 cm2 RA long axis: 4.5 cm LA A4 area: 20.5 cm2 RA area: 10.1 cm2 LA length (vol): 5.4 cm RA vol: 19.0 ml LA vol: 55.1 ml RA : 9.6 ml/m2 LA vol index: 27.7 ml/m2 RVD1 (basal): 3.6 cm RVD2 (mid): 2.5 cm TAPSE: 2.6 cm Doppler Measurements & Calculations Ao V2 max: 173.9 cm/sec LVOT Max Cristobal: 97.2 cm/sec Ao V2 mean: 108.1 cm/sec LV V1 max P.8 mmHg Ao V2 VTI: 35.0 cm LV V1 VTI: 22.7 cm Ao max P.1 mmHg Ao mean P.6 mmHg OLIVERIO(I,D): 5.6 cm2 MV E max cristobal: 73.7 cm/sec OLIVERIO(V,D): 4.9 cm2 MV A max cristobal: 82.5 cm/sec OLIVERIO indexed to BSA (cm^2/m^2): 2.8 MV E/A: 0.89 sev ratio: 0.65 Med Peak E' Cristobal: 8.5 cm/sec E/E' med: 8.7 Lat Peak E' Cristobal: 7.4 cm/sec E/E' lat: 9.9 E/e' average: 9.3 MV dec time: 0.17 sec TR max cristobal: 204.9 cm/sec TR max P.8 mmHg PA V2 max: 128.2 cm/sec SV(LVOT): 197.3 ml PA V2 mean: 76.1 cm/sec PA mean P.7 mmHg PA pr(Accel): 61.0 mmHg Electronically signed by: Alta Edmond M.D. on Reading Physician:01/24/2025 05:37 AM
== END ==
LOC: ECHO 08:09
PROVIDERS: PCP Family Medicine; Referring Provider Family Medicine; Visit Provider Family Medicine
DX: I34.81 Nonrheumatic mitral (valve) annulus calcification (principal); I35.1 Nonrheumatic aortic (valve) insufficiency; I77.89 Other specified disorders of arteries and arterioles; I10 Essential (primary) hypertension; R01.1 Cardiac murmur, unspecified; E78.2 Mixed hyperlipidemia; K21.9 Gastro-esophageal reflux disease without esophagitis; E66.9 Obesity, unspecified; Z87.898 Personal history of other specified conditions
CPT/HCPCS: 93306